=== PATIENT | female | born 1945 | race Caucasian/White ===

== ENCOUNTER 2020-11-30 12:26 | Emergency (ER) | payer MEDICARE, BC ==
[~2020-11-30] VITALS: Ht 157.5 cm; Wt 79.4 kg
[2020-11-30] MEDS ORDERED: SULF1TAB48 PO (12:41)
[2020-11-30] MEDS ORDERED: SULFAMETH/TRIMETH 800/160 MG TABLET PO ONE (12:45)
[2020-11-30] MEDS ORDERED: SULFAMETH/TRIMETH 800/160 MG TABLET ONE ×2 (12:47→12:50)
--- NOTE | 2020-11-30 12:53 | NUR ---
Patient discharged to home in stable condition with family. Written and verbal after care instructions given. Patient verbalizes understanding of instructions. Stressed follow up or return to ER for worsening s/s.
== END 2020-11-30 12:54 | disposition home or self-care (01) ==
LOC: ER 12:26
DX: L08.89 Other specified local infections of the skin and subcutaneous tissue (principal); B95.8 Unspecified staphylococcus as the cause of diseases classified elsewhere
CPT/HCPCS: A4663